=== PATIENT | male | born 1980 | race Hispanic/Latino ===

== ENCOUNTER 2018-03-01 11:02 | Emergency (ER) | payer SELFPAY ==
[~2018-03-01] VITALS: Ht 162.6 cm; Wt 78.2 kg
[2018-03-01] MEDS ORDERED: IBUPROFEN600 MG PO (12:41)
[2018-03-01 12:44] VITALS: BP 125/80
== END 2018-03-01 12:48 | disposition home or self-care (01) | DRG 556 ==
LOC: ED 11:02
DX: M25.512 Pain in left shoulder (principal); M25.532 Pain in left wrist; W01.0XXA Fall on same level from slipping, tripping and stumbling without subsequent striking against object, initial encounter; Y92.008 Other place in unspecified non-institutional (private) residence as the place of occurrence of the external cause

== ENCOUNTER 2018-04-08 20:43 | Emergency (ER) | payer SELFPAY ==
[~2018-04-08] VITALS: Ht 162.6 cm; Wt 81.8 kg
[~2018-04-08 20:43] MED LIST: IBUPROFEN600 MG PO
[2018-04-08] MEDS ORDERED: TRAMADOL HCL50 MG PO (21:11)
[2018-04-08] MEDS ORDERED: MOTRIN800 MG PO (21:11)
[2018-04-08] MEDS ORDERED: AMOXICILLIN500 M2 PO (21:11)
[2018-04-08 21:25] VITALS: BP 137/89
== END 2018-04-08 21:25 | disposition home or self-care (01) | DRG 159 ==
LOC: ED 20:43
DX: K04.7 Periapical abscess without sinus (principal); K08.89 Other specified disorders of teeth and supporting structures